=== PATIENT | female | born 1995 | race Asian ===

== ENCOUNTER 2017-04-08 14:49 | Observation (INO) | payer OTHER ==
[~2017-04-08] VITALS: Ht 157.5 cm; Wt 65.3 kg
[2017-04-08] MEDS ORDERED: LACTATED RINGERS 1,000 ML IV SCH (15:00)
[2017-04-08] MEDS ORDERED: PREN-88 PO (15:55)
[2017-04-08] MEDS ORDERED: FERR-63 PO (15:56)
== END 2017-04-08 19:30 | disposition home or self-care (01) ==
LOC: L&D 14:49
PROVIDERS: ADMIT Obstetrics & Gynecology; ATTEND Obstetrics & Gynecology
DX: O26.893 Other specified pregnancy related conditions, third trimester (principal); R10.30 Lower abdominal pain, unspecified; M54.5 Low back pain; V89.2XXA Person injured in unspecified motor-vehicle accident, traffic, initial encounter; Y93.89 Activity, other specified; Y92.410 Unspecified street and highway as the place of occurrence of the external cause; Y99.8 Other external cause status; Z3A.37 37 weeks gestation of pregnancy
CPT/HCPCS: 76805; 76818; 96360; 96361; 99281; G0378; J7120